=== PATIENT | male | born 1990 | race Two or more races ===

== ENCOUNTER 2022-09-04 01:57 | Inpatient (IN) | payer MEDICAID ==
[~2022-09-04] VITALS: Ht 165.1 cm; Wt 95.0 kg
[2022-09-04] MEDS ORDERED: NALOXONE HCL 1MG/ML 2ML SYRINGE IV ONE (03:30)
[2022-09-04 03:47] LABS: Alanine Aminotransferase 52 U/L (16-61); Anion Gap 10 (5-15); Aspartate Aminotransferase 38 U/L (15-37); BUN/Creatinine Ratio 11.4 (10.0-20.0); Blood Alcohol < 3.0 mg/dL (0-5); Blood Urea Nitrogen 17 mg/dL (7-18); Calcium 8.5 mg/dL (8.5-10.1); Carbon Dioxide 25 mmol/L (21-32); Chloride 107 mmol/L (98-107); GFR African American 70 mL/min; GFR Non-African American 58 mL/min; Glucose 124 mg/dL (74-106); Magnesium 2.6 mg/dL (1.6-2.6); Potassium 3.6 mmol/L (3.5-5.1); Sodium 142 mmol/L (136-145)
[2022-09-04 03:49] LABS: Salicylate < 1.7 mg/dL (2.8-20.0)
[2022-09-04 03:50] LABS: Alkaline Phosphatase 60 U/L (45-117); Bilirubin, Total 0.3 mg/dL (0.2-1.0); Total Protein 8.4 g/dL (6.4-8.2)
[2022-09-04 04:16] LABS: Acetaminophen < 2.0 ug/mL (10-30)
[2022-09-04 04:57] LABS: Red Blood Cells 5.33 10^6/uL (4.5-5.90)
[2022-09-04 04:58] LABS: Hematocrit 45.9 % (41.0-53.0); Hemoglobin 15.2 g/dL (13.5-17.5); Mean Corpuscular Hemoglobin 28.5 pg (28.0-32.0); Mean Corpuscular Hgb Conc. 33.1 g/dL (32.0-36.0); Mean Corpuscular Volume 86.2 fL (80.0-100.0); Red Cell Distribution Width 13.1 % (11.8-14.3)
[2022-09-04 05:04] LABS: Basophils % (manual) 0 (0.0-2.0); Blast Cells 0; Eosinophils % (manual) 0 (0-7); Metamyelocytes % 0; Myelocytes % 0; Promyelocytes % 0; Reactive Lymphocytes 0
[2022-09-04] MEDS ORDERED: SODIUM CHLORIDE 0.9% 2,000 ML IV ONE (05:15)
[2022-09-04] MEDS ORDERED: PIPERACILLIN-TAZOB 3.375GM 100 ML IV ONE (05:15)
[2022-09-04 09:06] LABS: Band Neutrophils % (manual) 19; Lymphocytes % (manual) 2 (10.0-50.0); Monocytes % (manual) 5 (0-12)
[2022-09-04 09:43] LABS: Cholesterol 184 mg/dL (< 200); Triglycerides 119 mg/dL (< 150)
[2022-09-04 09:46] LABS: HDL Cholesterol 47 mg/dL (40-59); LDL Cholesterol 117 mg/dL (< 100)
[2022-09-04] MEDS ORDERED: hydrALAZINE HCL 20 MG/ML VL IV PRN (10:00)
[2022-09-04] MEDS ORDERED: ONDANSETRON HCL 4 MG/2 ML VIAL IV PRN (10:00)
[2022-09-04] MEDS ORDERED: MORPHINE SULFATE INJ 2 MG/ml SYRG IV PRN (10:00)
[2022-09-04] MEDS ORDERED: VANCOMYCIN PER PHARMACY 0 MG IV SCH (10:00)
[2022-09-04] MEDS ORDERED: NITROGLYCERIN 0.4 MG SL TAB SL PRN (10:00)
[2022-09-04] MEDS ORDERED: VANCOMYCIN 1GM/250ML 250 ML IV ONE (11:30)
[2022-09-04] MEDS: PANTOPRAZOLE 40 MG/10 ML VIAL INJ IV SCH (12:54)
[2022-09-04] MEDS: SODIUM CHLORIDE 0.9% 1,000 ML IV SCH ×2 (12:55→18:36)
[2022-09-04] MEDS: CEFEPIME 1GM/ 50ML 50 ML IV SCH (14:10)
[2022-09-04 16:43] LABS: Urine Bacteria NONE SEEN /hpf (None Seen); Urine Blood 1+ /uL (Negative); Urine Mucus FEW (None Seen); Urine Specific Gravity 1.025 (1.001-1.035); Urine WBC 1 /hpf (0 - 3)
[2022-09-04 17:04] LABS: Alcohol, Urine < 3.0 mg/dL (0-10); Amphetamine Screen, Urine POSITIVE (NEGATIVE); Barbiturate Scree,Urine NEGATIVE (NEGATIVE); Benzodiazephine Screen, Urine NEGATIVE (NEGATIVE); Cannabinoid Screen, Urine NEGATIVE (NEGATIVE); Cocaine Screen, Urine NEGATIVE (NEGATIVE); Opiate Scree,Urine NEGATIVE (NEGATIVE)
[2022-09-04 17:12] LABS: Phencyclidine Screen, Urine NEGATIVE (NEGATIVE)
[2022-09-05] MEDS: CEFEPIME 1GM/ 50ML 50 ML IV SCH ×3 (00:51→14:00)
[2022-09-05] MEDS ORDERED: VANCOMYCIN 1GM/250ML 250 ML IV SCH (05:00)
[2022-09-05 07:49] LABS: BUN/Creatinine Ratio 10.5 (10.0-20.0); Calcium 7.7 mg/dL (8.5-10.1)
[2022-09-05 08:40] LABS: Basophils # (auto) 0 10 ^3/uL (0-0.2); Basophils % (auto) 0.3 % (0.0-2.0); Eosinophils # (auto) 0.2 10 ^3/uL (0-0.8); Eosinophils % (auto) 1.3 % (0.0-7.0); Hematocrit 40.5 % (41.0-53.0); Hemoglobin 13.3 g/dL (13.5-17.5); Lymphocytes # (auto) 2.9 10 ^3/uL (0.4-5.4); Lymphocytes % (auto) 24.4 % (10.0-50.0); Mean Corpuscular Hemoglobin 28.1 pg (28.0-32.0); Mean Corpuscular Hgb Conc. 32.7 g/dL (32.0-36.0); Mean Corpuscular Volume 85.9 fL (80.0-100.0); Monocytes # (auto) 0.8 10 ^3/uL (0-1.3); Monocytes % (auto) 6.7 % (0.0-12.0); Neutrophils # (auto) 8.2 10 ^3/uL (1.6-8.6); Neutrophils % (auto) 67.3 % (37.0-80.0); Red Blood Cells 4.71 10^6/uL (4.5-5.90); Red Cell Distribution Width 13.4 % (11.8-14.3); White Blood Cell 12.1 10^3/uL (4.4-10.8)
[2022-09-05] MEDS: SODIUM CHLORIDE 0.9% 1,000 ML IV SCH ×2 (09:02→10:40)
[2022-09-05] MEDS: PANTOPRAZOLE 40 MG/10 ML VIAL INJ IV SCH (10:01)
[2022-09-05] MEDS ORDERED: FUROSEMIDE 20 MG/2 ML VIAL IV ONE (13:30)
[2022-09-05 16:17] VITALS: BP 126/56
== END 2022-09-05 16:23 | disposition home or self-care (01) | DRG 812 ==
LOC: ER 01:57 → TELE 09:47
PROVIDERS: ADMIT Registered Nurse; ATTEND Internal Medicine
DX: T40.411A Poisoning by fentanyl or fentanyl analogs, accidental (unintentional), initial encounter (principal); G92.9 Unspecified toxic encephalopathy; N17.9 Acute kidney failure, unspecified; R65.10 Systemic inflammatory response syndrome (SIRS) of non-infectious origin without acute organ dysfunction; I10 Essential (primary) hypertension; D72.829 Elevated white blood cell count, unspecified; E66.01 Morbid (severe) obesity due to excess calories; Z68.34 Body mass index [BMI] 34.0-34.9, adult; Y92.89 Other specified places as the place of occurrence of the external cause; Z71.3 Dietary counseling and surveillance
CPT/HCPCS: 36415; 70450; 71045; 80048; 80053; 80061; 80307; 80320; 80329; 81001; 83036; 83605; 83735; 84443; 85007; 85025; 85027; 87040; 87086; 93005; 93306; 96365; 96366; C9113; G0378; J2543

== ENCOUNTER 2025-01-21 04:48 | Emergency (ER) | payer MEDICAID ==
[~2025-01-21] VITALS: Ht 165.1 cm; Wt 113.8 kg
--- NOTE | 2025-01-21 06:48 | ED.PDOC ---
History of Present Illness HPI Comments 34-year-old male presents to the ER with a chief complaint of abdominal pain. Patient reports on being awoken from his sleep this morning due from epigastric pain which started as a 10/10 but is currently 7/10 on the pain scale. Patient states that the pain occasionally goes to the back. She notes the eat went to the hospital two weeks ago for similar symptoms. Social history of marijuana use. Denies any other symptoms at this time. Denies chills, fever, N/V/D, SOB, CP. No other associated symptoms, modifiers, recent injuries or sick contacts present at this time. Chief Complaint: Abdominal Pain Time Seen by MD: 06:45 Reviewed Notes: Nurses Notes, Medications, Allergies Allergies: Coded Allergies: NO KNOWN ALLERGIES (Unverified , 09/04/22) Information Source: Patient Mode of Arrival: Ambulatory Severity: Moderate Timing: Hours Duration: Since onset, Hours Prehospital treatment: None Past Medical History PAST MEDICAL HISTORY: Denies Surgical History: Denies all surgeries Family History Family History: Reviewed,noncontributory to illness, Unknown Social History Smoker: Non-Smoker Alcohol: Denies ETOH Use Drugs: Marijuana Lives In: Home Constitutional: denies: chills, diaphoresis, fatigue, fever, malaise, sweats, weakness, others EENTM: denies: blurred vision, double vision, ear bleeding, ear discharge, ear drainage, ear pain, ear ringing, eye pain, eye redness, hearing loss, mouth pain, mouth swelling, nasal discharge, nose bleeding, nose congestion, nose pain, photophobia, tearing, throat pain, throat swelling, voice changes, others Respiratory: denies: cough, hemoptysis, orthopnea, SOB at rest, shortness of breath, SOB with excertion, stridor, wheezing, others Cardiovascular: denies: chest pain, dizzy spells, diaphoresis, Dyspnea on exertion, edema, irregular heart beat, left arm pain, lightheadedness, palpitations, PND, syncope, others Gastrointestinal: reports: abdominal pain; denies: abdomen distended, blood streaked bowels, constipated, diarrhea, dysphagia, difficulty swallowing, hematemesis, melena, nausea, poor appetite, poor fluid intake, rectal bleeding, rectal pain, vomiting, others Genitourinary: denies: burning, dysuria, flank pain, frequency, hematuria, incontinence, penile discharge, penile sore, pain, testicle pain, testicle swelling, urgency, others Neurological: denies: dizziness, fainting, headache, left sided numbness, left sided weakness, numbness, paresthesia, pre-existing deficit, right sided numbness, right sided weakness, seizure, speech problems, tingling, tremors, weakness, others Musculoskeletal: reports: back pain; denies: gout, joint pain, joint swelling, muscle pain, muscle stiffness, neck pain, others Integumetry: denies: bruises, change in color, change in hair/nails, dryness, laceration, lesions, lumps, rash, wounds, others Allergic/Immunocompromised: denies: Difficulty Healing, Frequent Infections, Hives, Itching, others Hematologic/Lymphatic: denies: anemia, blood clots, easy bleeding, easy bruising, swollen glands, others Endocrine: denies: excessive hunger, excessive sweating, excessive thirst, excessive urination, flushing, intolerance to cold, intolerance to heat, unex plained weight gain, unexplained weight loss, others Psychiatric: denies: anxiety, bipolar disorder, depression, hopeless, panic disorder, schizophrenia, sleepless, suicidal, others All Other Systems: Reviewed and Negative Physical Exam General Appearance: Moderate Distress, Normal HEENT: Normal ENT Inspection, Pharynx Normal, TMs Normal Neck: Full Range of Motion, Non-Tender, Normal, Normal Inspection Respiratory: Chest Non-Tender, Lungs Clear, No Accessory Muscle Use, No Respiratory Distress, Normal Breath Sounds Cardiovascular: No Edema, No JVD, No Murmur, No Gallop, Normal Peripheral Pulses, Regular Rate/Rhythm Breast Exam: Deferred Gastrointestinal: Diffuse, No Organomegaly, No Pulsatile Mass, Normal Bowel Sounds, Soft Genitalia: Deferred Pelvic: Deferred Rectal: Deferred Extremities: No calf tenderness, Normal capillary refill, Normal inspection, Normal range of motion, Non-tender, No pedal edema Musculoskeletal : Apperance: Normal Neurologic: Alert, infrastructure consultant II-XII nml as Tested, No Motor Deficits, Normal Affect, Normal Mood, No Sensory Deficits Cerebellar Function: Normal Reflexes: Normal Skin: Dry, Normal Color, Warm Peripheral Pulses: 3+ Radial (R), 3+ Radial (L) Lymphatic: No Adenopathy Was a procedure done? Was a procedure done?: No Differential Dx Considerations may include: Gallstone Electrolyte imbalance X-Ray, Labs, Meds, VS Vital Signs Date Time Temp Pulse Resp B/P (MAP) Pulse Ox O2 Delivery O2 Flow Rate FiO2 01/21/25 08:07 98.0 55 16 144/101 (115) 97 98.0 01/21/25 07:34 65 18 98 Room Air 01/21/25 07:34 65 18 136/82 (100) 98 01/21/25 06:42 97.9 73 14 150/81 (104) 99 97.9 01/21/25 04:49 100.1 85 20 139/93 100 100.1 Lab Test 01/21/25 06:52 Range/Units White Blood Count 10.8 4.4-10.8 10^3/uL Red Blood Count 5.20 4.5-5.90 10^6/uL Hemoglobin 14.5 13.5-17.5 g/dL Hematocrit 44.0 41.0-53.0 % Mean Corpuscular Volume 84.6 80.0-100.0 fL Mean Corpuscular Hemoglobin 27.8 L 28.0-32.0 pg Mean Corpuscular Hemoglobin Concent 32.9 32.0-36.0 g/dL Red Cell Distribution Width 13.5 11.8-14.3 % Platelet Count 298 140-450 10^3/uL Mean Platelet Volume 7.2 6.9-10.8 fL Neutrophils (%) (Auto) 71.6 37.0-80.0 % Lymphocytes (%) (Auto) 19.7 10.0-50.0 % Monocytes (%) (Auto) 7.2 0.0-12.0 % Eosinophils (%) (Auto) 1.0 0.0-7.0 % Basophils (%) (Auto) 0.5 0.0-2.0 % Neutrophils # (Auto) 7.8 1.6-8.6 10 ^3/uL Lymphocytes # (Auto) 2.1 0.4-5.4 10 ^3/uL Monocytes # (Auto) 0.8 0-1.3 10 ^3/uL Eosinophils # (Auto) 0.1 0-0.8 10 ^3/uL Basophils # (Auto) 0.1 0-0.2 10 ^3/uL Nucleated Red Blood Cells 0.0 % Sodium Level 140 136-145 mmol/L Potassium Level 4.0 3.5-5.1 mmol/L Chloride Level 103 98-107 mmol/L Carbon Dioxide Level 27 20-31 mmol/L Anion Gap 10 5-15 Blood Urea Nitrogen 10 9-23 mg/dL Creatinine 1.07 0.700-1.30 mg/dL Glomerular Filtration Rate Calc 93 >90 mL/min BUN/Creatinine Ratio 9.3 L 10.0-20.0 Serum Glucose 105 74-106 mg/dL Calcium Level 9.1 8.7-10.4 mg/dL Total Bilirubin 0.4 0.2-1.0 mg/dL Aspartate Amino Transferase (AST) 30 13-40 U/L Alanine Aminotransferase (ALT) 26 7-40 U/L Alkaline Phosphatase 72 46-116 U/L Total Protein 7.6 5.7-8.2 g/dL Albumin 4.4 3.2-4.8 g/dL Current Medications Medications (Trade) Dose Ordered Sig/Delia Route Start Time Stop Time Status Last Admin Sodium Chloride 1,000 ml @ 1,000 mls/hr Q1H ONCE IV 01/21/25 07:15 01/21/25 08:14 01/21/25 07:34 Patient alert. Complaining of abdominal pain. Vitals stable. Answering questions. Abdomen diffusely tender. CT scan of the abdomen reviewed does not show any acute process. WBC within normal limits. Liver enzymes within normal limits. Establish intravenous access. Was given fluids. Was given pain medication. Was given Zofran. Possible gastritis. Was given prescription of Protonix. Explained to the patient. Was told to follow up with his primary care physician. Was told to come back if there is any problem. Time of 1ST Reevaluation: 07:15 Reevaluation 1ST: Unchanged Time of 2ND Reevaluation: 08:13 Reevaluation 2ND: Improved Patient Education/Counseling: Diagnosis, Treatment, Prognosis Family Education/Counseling: No Family Present SEPSIS Sepsis Screen Date sepsis recognized/suspect: Jan 21, 2025 Time Sepsis recognized/suspect: 0452 Recent Procedure: No On Antibiotic Therapy: No Respiratory Rate >20: No Heart Rate >90: No Temp<36 C (96.8 F) or >38.3 C: No SBP <90 or MAP <65 mmHG: No New Acute Mental Status Change: No Is the patient on CPAP, BIPAP,: No Physician Orders Ct Ab Pel Wo Con-No Oral Or Iv (01/21/25 06:46) Sodium Chloride 0.9% (01/21/25 07:15) Vital Signs Date Time Temp Pulse Resp B/P (MAP) Pulse Ox O2 Delivery O2 Flow Rate FiO2 01/21/25 08:07 98.0 55 16 144/101 (115) 97 98.0 01/21/25 07:34 65 18 98 Room Air 01/21/25 07:34 65 18 136/82 (100) 98 01/21/25 06:42 97.9 73 14 150/81 (104) 99 97.9 01/21/25 04:49 100.1 85 20 139/93 100 100.1 Laboratory Tests Test 01/21/25 06:52 White Blood Count 10.8 10^3/uL (4.4-10.8) Medications Medications Dose Ordered Sig/Delia Route Start Time Stop Time Status Last Admin Dose Admin Sodium Chloride 1,000 ml @ 1,000 mls/hr Q1H ONCE IV 01/21/25 07:15 01/21/25 08:14 01/21/25 07:34 Departure 1 Departure Time of Disposition: 07:03 Impression: Primary Impression: Gastritis Qualified Codes: K29.00 - Acute gastritis without bleeding Disposition: 01 HOME / SELF CARE / HOMELESS Condition: Good e-Prescriptions Pantoprazole Sodium Sesquihydr (Protonix) 40 Mg Tab 40 MG PO DAILY for 5 Days, #5 TAB Prov: JAMIE LEON MD 01/21/25 Discharged With: Self Critical Care Note Critical Care Time?: No Stability Stability form required: No Heart Score Heart Score: Heart Score Response (Comments) Value History N/A 0 EKG N/A 0 Age N/A 0 Risk Factors N/A 0 Troponin N/A 0 Total 0 I personally scribed for JAMIE LEON MD ([email or web address]) on 01/21/25 at 06:47. Electronically submitted by Vishal Angel ([email or web address]). JAMIE LEON MD Jan 21, 2025 06:47
[2025-01-21 07:08] LABS: Hematocrit 44.0 % (41.0-53.0); Hemoglobin 14.5 g/dL (13.5-17.5); Mean Corpuscular Hemoglobin 27.8 pg (28.0-32.0); Mean Corpuscular Volume 84.6 fL (80.0-100.0); Nucleated Red Blood Cells % 0.0 %
[2025-01-21 07:25] LABS: Alanine Aminotransferase 26 U/L (7-40); Albumin 4.4 g/dL (3.2-4.8); Alkaline Phosphatase 72 U/L (46-116); Anion Gap 10 (5-15); BUN/Creatinine Ratio 9.3 (10.0-20.0); Bilirubin, Total 0.4 mg/dL (0.2-1.0); Blood Urea Nitrogen 10 mg/dL (9-23); Calcium 9.1 mg/dL (8.7-10.4); Carbon Dioxide 27 mmol/L (20-31); Chloride 103 mmol/L (98-107); Glucose 105 mg/dL (74-106); Potassium 4.0 mmol/L (3.5-5.1); Sodium 140 mmol/L (136-145); Total Protein 7.6 g/dL (5.7-8.2)
[2025-01-21] MEDS: SODIUM CHLORIDE 0.9% 1,000 ML IV ONE (07:34)
--- NOTE | 2025-01-21 07:43 | DVH ---
Exam: CT CT AB PEL WO CON-NO ORAL OR IV History: gallstone Comparison Study: None Technique: Multidetector spiral CT of the abdomen and pelvis was performed from lung bases to pubic s ymphysis. Imaging was performed without intravenous contrast. Coronal and sagittal multiplanar reform ats were obtained from the axial data set by the technologist. Radiation Dose : 1. Abdomen/Pelvis: CTDIvol 26.99 mGy, DLP 1732.8 mGy*cm. Findings: Evaluation of vasculature and solid organs is limited due to lack of intravenous contrast use. Lung Bases: Lung bases are clear. Visualized portions of the heart and pericardium are unremarkable. Liver: The liver is normal in size. No focal lesions. Gallbladder and Biliary Tree: The gallbladder is unremarkable. No intrahepatic or extrahepatic biliar y ductal dilatation. Spleen: Unremarkable Pancreas: The pancreas is grossly unremarkable. Adrenal Glands: Unremarkable Kidneys: Kidneys are unremarkable without calculi or hydronephrosis. GI tract: The stomach is grossly normal in appearance. No evidence of small bowel wall thickening or abnormal dilatation to suggest bowel obstruction. The colon is unremarkable. The appendix is visualiz ed and normal. Peritoneum/mesentery/retroperitoneum. No evidence of free intraperitoneal air. No ascites. No evidenc e of suspicious lymphadenopathy. Abdominal Wall: Unremarkable. Vasculature: The visualized abdominal aorta is normal in size and caliber. Evaluation of abdominal a nd pelvic vessels is limited due to lack of intravenous contrast. Urinary Bladder: Grossly unremarkable for degree of distention. Pelvic Organs: Unremarkable Musculoskeletal: No aggressive focal bony lesions, acute fractures or dislocation. IMPRESSION: 1. No acute abdominal or pelvic findings.
[2025-01-21 08:07] VITALS: TEMP 98
[2025-01-21] MEDS: HYDROmorphone HCL 2 MG/ML VL/or syr IV ONE (08:14)
[2025-01-21] MEDS ORDERED: PANT40TA2 PO (08:14)
[2025-01-21] MEDS: ONDANSETRON HCL 4 MG/2 ML VIAL IV ONE (08:14)
[2025-01-21 09:16] VITALS: O2SAT 98
[2025-01-21 09:17] VITALS: BP 133/88; PULSE 69; RESP 18
== END 2025-01-21 09:17 | disposition home or self-care (01) ==
LOC: ER 04:48
DX: K29.00 Acute gastritis without bleeding (principal); F12.90 Cannabis use, unspecified, uncomplicated; Z79.899 Other long term (current) drug therapy
CPT/HCPCS: 36415; 74176; 80053; 85025; 96361; 96374; 96375; 99285; J1171; J2405; J7030